=== PATIENT | female | born 1965 | race Two or more races ===

== ENCOUNTER 2018-08-28 19:32 | Emergency (ER) | payer BC | END 2018-08-28 22:36 | disposition home or self-care (01) | LOC: FTE 19:32 | DX: S16.1XXA Strain of muscle, fascia and tendon at neck level, initial encounter (principal); S20.219A Contusion of unspecified front wall of thorax, initial encounter; S80.02XA Contusion of left knee, initial encounter; V47.9XXA Unspecified car occupant injured in collision with fixed or stationary object in traffic accident, initial encounter | CPT/HCPCS: 71046; 71110; 72040; 72072; 99284-25 ==